=== PATIENT | female | born 1980 | race Caucasian/White ===

== ENCOUNTER → 2018-07-15 12:16 | Outpatient (CLI) | payer OTHER, SELFPAY ==
[2017-04-09 06:29] VITALS: BMI 27.6
[2018-07-15 13:16] LABS: D-Dimer Quantitative (DVT/PE) 0.34 FEU/ug/m (0.27-0.49)
== END ==
PROVIDERS: Referring Provider Family Medicine; Visit Provider Family Medicine
DX: R06.02 Shortness of breath (principal)
CPT/HCPCS: 85379

== ENCOUNTER → 2018-10-11 11:36 | Outpatient (CLI) | payer OTHER, SELFPAY ==
--- NOTE | 2018-10-11 11:39 | US_ITS ---
STUDY: THYROID ULTRASOUND REASON FOR EXAM: Female, 38 years old. Thyromegaly. TECHNIQUE: Ultrasound evaluation of the thyroid was performed with real-time and static cornelius-scale imaging. COMPARISON: None. FINDINGS: RIGHT LOBE: The right lobe of the thyroid gland measures 4.5 x 1.8 x 1.0 cm. There is a homogeneous echotexture. There are no demonstrated solid, cystic or complex lesions. There is increased vascularity throughout the gland. LEFT LOBE: The left lobe of the thyroid gland measures 4.5 x 1.5 x 1.3 cm. There is a homogeneous echotexture. There are no demonstrated solid, cystic or complex lesions. There is increased vascularity throughout the gland. ISTHMUS: The isthmus measures . US/Thyroid IMPRESSION: Enlarged hypervascular gland suggestive of a history of thyroiditis. Electronically Signed: Alissa Darling MD at 16:37 EDT Tel , Service support ,
[2018-10-11 12:47] LABS: Absolute Lymphocyte Count 1.66 X10^3/ul (0.83-4.51); Absolute Neutrophil Count 4.2 X10^3/uL (2.0-7.7); Basophil# 0.06 X10^3/uL; Basophil% 0.9 % (0-1); Eosinophil# 0.27 X10^3/uL; Hematocrit 35.5 % (37-47); Hemoglobin 11.4 g/dl (12.0-15.0); Lymphocyte # 1.66 X10^3/ul (4.0); Lymphocyte % 24.4 % (19-41); Mean Corp Hgb Conc 32.1 g/gl (32-36); Mean Corpuscular Hgb 28.3 pg (27.0-32.0); Mean Corpuscular Volume 88.1 fL (81-99); Mean Platelet Vol. 9.4 fl (6.2-12.0); Monocyte# 0.56 X10^3/uL; Monocyte% 8.2 % (0-10); Neutrophil # 4.23 X10^3/uL (2.7-7.7); Neutrophil % 62.2 % (47-70); Platelet Count 313 K/mm3 (150-450); RBC Distribution Width SD 40.6 fl (35.1-43.9); Red Blood Count 4.03 M/mm3 (4.2-5.4); White Blood Count 6.8 K/mm3 (4.4-11.0)
[2018-10-11 12:49] LABS: POSITIVE COUNT NO; POSITIVE DIFFERENTIAL NO; POSITIVE MORPHOLOGY NO
[2018-10-11 13:35] LABS: ALB/GLOB Ratio 1.1 RATIO (0.9-2.4); AST(SGOT) 19 U/L (15-37); Alanine Aminotransfer ALT/SGPT 22 U/L (13-56); Albumin, Serum 3.7 g/dL (3.2-5.0); Alkaline Phosphatase 81 U/L (45-117); Anion Gap 9 (5-15); BUN 10 mg/dL (7-18); BUN/Creat Ratio 13.4 RATIO (10-20); Calcium,Total 8.3 mg/dL (8.5-10.1); Chloride 108 mmol/L (98-107); Cholesterol 124 mg/dL (200); Creatinine, Serum 0.74 mg/dL (0.55-1.02); EST Glomerular Filtration Rate 93 mL/min (>60); Est Glom Filt Rate - Afr Amer 113 mL/min (>60); Globulin 3.4 g/dL (2.2-4.2); Glucose 80 mg/dL (74-106); High Density Lipoprotein 78 mg/dL; Potassium 3.6 mmol/L (3.5-5.1); Protein, Total 7.1 g/dL (6.4-8.2); Sodium Level 141 mmol/L (136-145); Triglycerides 31 mg/dL; Very Low Density Lipoprotein 6 mg/dL (5-40)
== END ==
PROVIDERS: Family Provider Family Medicine; PCP Family Medicine; Referring Provider Family Medicine; Visit Provider Family Medicine
DX: E01.0 Iodine-deficiency related diffuse (endemic) goiter (principal); K21.9 Gastro-esophageal reflux disease without esophagitis; R07.9 Chest pain, unspecified
CPT/HCPCS: 36415; 76536; 80053; 80061; 85025

== ENCOUNTER → 2018-10-12 11:32 | Outpatient (CLI) | payer OTHER, SELFPAY ==
[2017-04-09 06:29] VITALS: BMI 27.6
[2018-10-12 14:23] LABS: Vitamin B12 373 pg/mL (211-911)
[2018-10-12 14:35] LABS: Ferritin 10 ng/mL (8-252); Iron 45 ug/dL (50-170); Iron Binding Capacity,Total 371 ug/dL (250-450); T4 Free Direct 0.75 ng/dL (0.76-1.46); Thyroid Stim Hormone (TSH) 1.26 uIU/mL (0.358-3.74)
[2018-10-13 16:22] LABS: Anti-Thyroglobulin AB < 1.0 IU/mL (0.0-0.9); Thyroid Peroxidase AB 12 IU/mL (0-34)
[2019-01-18 17:33] LABS: Hematocrit 37.7 % (37-47); Hemoglobin 12.4 g/dl (12.0-15.0); Mean Corp Hgb Conc 32.9 g/gl (32-36); Mean Corpuscular Hgb 28.5 pg (27.0-32.0); Mean Corpuscular Volume 86.7 fL (81-99); Mean Platelet Vol. 9.4 fl (6.2-12.0); Platelet Count 259 K/mm3 (150-450); RBC Distribution Width CV 14.2 % (11.6-14.6); RBC Distribution Width SD 44.8 fl (35.1-43.9); Red Blood Count 4.35 M/mm3 (4.2-5.4); White Blood Count 7.3 K/mm3 (4.4-11.0)
[2019-01-18 17:39] LABS: Scan Indicated on CBC? Y/N NO
[2019-01-18 18:07] LABS: AST(SGOT) 20 U/L (15-37); Alanine Aminotransfer ALT/SGPT 18 U/L (13-56); Albumin, Serum 3.6 g/dL (3.2-5.0); Alkaline Phosphatase 92 U/L (45-117); Anion Gap 3 (5-15); BUN 10 mg/dL (7-18); BUN/Creat Ratio 13.1 RATIO (10-20); Calcium,Total 8.4 mg/dL (8.5-10.1); Chloride 107 mmol/L (98-107); Creatinine, Serum 0.76 mg/dL (0.55-1.02); EST Glomerular Filtration Rate 91 mL/min (>60); Est Glom Filt Rate - Afr Amer 110 mL/min (>60); Ferritin 28 ng/mL (8-252); Globulin 3.5 g/dL (2.2-4.2); Glucose 84 mg/dL (74-106); Iron 57 ug/dL (50-170); Iron Binding Capacity,Total 323 ug/dL (250-450); Potassium 3.9 mmol/L (3.5-5.1); Protein, Total 7.1 g/dL (6.4-8.2); Sodium Level 136 mmol/L (136-145); T4 Free Direct 0.76 ng/dL (0.76-1.46); Thyroid Stim Hormone (TSH) 1.69 uIU/mL (0.358-3.74)
[2019-01-18 19:25] LABS: Vitamin B12 358 pg/mL (211-911); Vitamin D,25 Hydroxy 24.5 ng/mL (29.95-100.01)
== END ==
PROVIDERS: Family Provider Family Medicine; PCP Family Medicine; Referring Provider Family Medicine; Visit Provider Family Medicine
DX: E01.0 Iodine-deficiency related diffuse (endemic) goiter (principal); K21.9 Gastro-esophageal reflux disease without esophagitis; D64.9 Anemia, unspecified; R07.9 Chest pain, unspecified
CPT/HCPCS: 36415; 80053; 82306; 82607; 82728; 82746; 83540; 83550; 84432; 84439; 84443; 85027; 86376; 86800

== ENCOUNTER → 2018-10-24 12:15 | Outpatient (CLI) | payer OTHER, SELFPAY ==
[2018-10-24 13:52] LABS: Erythrocyte Sedimentation Rate 8 mm/hr (0-20)
[2018-10-24 14:09] LABS: T3 Total - Triiodothyronine 0.94 ng/mL (0.6-1.81)
[2018-10-24 14:11] LABS: Free T3 2.9 pg/mL (2.18-3.98); T4 Free Direct 1.03 ng/dL (0.76-1.46); Thyroid Stim Hormone (TSH) 1.37 uIU/mL (0.358-3.74)
== END ==
PROVIDERS: Family Provider Family Medicine; PCP Family Medicine; Referring Provider Otolaryngology; Visit Provider Otolaryngology
DX: E06.1 Subacute thyroiditis (principal)
CPT/HCPCS: 36415; 84439; 84443; 84480; 84481; 85652

== ENCOUNTER → 2018-11-16 17:17 | Outpatient (CLI) | payer OTHER, SELFPAY ==
[2017-04-09 06:29] VITALS: BMI 27.6
[2018-11-16 17:29] LABS: Absolute Lymphocyte Count 1.49 X10^3/ul (0.83-4.51); Absolute Neutrophil Count 5.5 X10^3/uL (2.0-7.7); Basophil# 0.03 X10^3/uL; Basophil% 0.4 % (0-1); Eosinophil# 0.25 X10^3/uL; Eosinophils% 3.2 % (0-5); Hematocrit 36.9 % (37-47); Hemoglobin 12.1 g/dl (12.0-15.0); Lymphocyte # 1.49 X10^3/ul (4.0); Lymphocyte % 19.3 % (19-41); Mean Corp Hgb Conc 32.8 g/gl (32-36); Mean Corpuscular Hgb 28.5 pg (27.0-32.0); Monocyte# 0.49 X10^3/uL; Monocyte% 6.3 % (0-10); Neutrophil # 5.45 X10^3/uL (2.7-7.7); Neutrophil % 70.5 % (47-70); Platelet Count 274 K/mm3 (150-450); RBC Distribution Width CV 14.4 % (11.6-14.6); RBC Distribution Width SD 45.6 fl (35.1-43.9); Red Blood Count 4.24 M/mm3 (4.2-5.4); White Blood Count 7.7 K/mm3 (4.4-11.0)
[2018-11-16 17:30] LABS: POSITIVE COUNT NO; POSITIVE DIFFERENTIAL NO; POSITIVE MORPHOLOGY NO
[2018-11-16 18:10] LABS: Ferritin 18 ng/mL (8-252); Iron 81 ug/dL (50-170); Iron Binding Capacity,Total 391 ug/dL (250-450)
== END ==
PROVIDERS: Family Provider Family Medicine; PCP Family Medicine; Referring Provider Family Medicine; Visit Provider Family Medicine
DX: D50.9 Iron deficiency anemia, unspecified (principal)
CPT/HCPCS: 36415; 82728; 83540; 83550; 85025

== ENCOUNTER → 2019-01-19 11:41 | Outpatient (CLI) | payer OTHER, SELFPAY ==
[2017-04-09 06:29] VITALS: BMI 27.6
== END ==
PROVIDERS: Family Provider Family Medicine; PCP Family Medicine; Referring Provider Family Medicine; Visit Provider Family Medicine
DX: R05 Cough (principal)
CPT/HCPCS: 87070

== ENCOUNTER → 2019-03-15 16:54 | Outpatient (CLI) | payer OTHER, SELFPAY ==
[2017-04-09 06:29] VITALS: BMI 27.6
[2019-03-15 18:18] LABS: Vitamin D,25 Hydroxy 23.2 ng/mL (29.95-100.01)
[2019-03-15 18:25] LABS: T4 Free Direct 0.75 ng/dL (0.76-1.46); Thyroid Stim Hormone (TSH) 1.98 uIU/mL (0.358-3.74)
[2019-03-24 13:07] LABS: Thyroglobulin RIA 10 ng/mL (.); Thyroid Peroxidase AB 14 IU/mL (0-34)
== END ==
PROVIDERS: Family Provider Family Medicine; PCP Family Medicine; Referring Provider Family Medicine; Visit Provider Family Medicine
DX: E01.0 Iodine-deficiency related diffuse (endemic) goiter (principal); E55.9 Vitamin D deficiency, unspecified
CPT/HCPCS: 36415; 82306; 84432; 84439; 84443; 86376; 86800

== ENCOUNTER → 2019-04-07 08:19 | Outpatient (CLI) | payer OTHER, SELFPAY ==
--- NOTE | 2019-04-07 08:25 | US_ITS ---
STUDY: THYROID ULTRASOUND REASON FOR EXAM: Female, 38 years old. Thyromegaly. TECHNIQUE: Ultrasound evaluation of the thyroid was performed with real-time and static cornelius-scale imaging. COMPARISON: Comparison is made with prior study dated October 11, 2018. FINDINGS: RIGHT LOBE: The right lobe of the thyroid gland measures 4.5 cm x 1.7 cm x 1.3 cm. There is a homogeneous echotexture. There are no demonstrated solid, cystic or complex lesions. LEFT LOBE: The left lobe of the thyroid gland measures 4.3 cm x 1.7 cm x 0.9 cm. There is a homogeneous echotexture. There are no demonstrated solid, cystic or complex lesions. ISTHMUS: The isthmus measures 2.0 mm. The regional lymph nodes are normal. US/Thyroid IMPRESSION: Normal ultrasound examination of the thyroid. Electronically Signed: Sergio Robb, at 15:25 EDT , Service support ,
== END ==
PROVIDERS: Family Provider Family Medicine; PCP Family Medicine; Referring Provider Family Medicine; Visit Provider Family Medicine
DX: E01.0 Iodine-deficiency related diffuse (endemic) goiter (principal)
CPT/HCPCS: 76536

== ENCOUNTER 2019-05-26 01:21 | Emergency (ER) | payer OTHER, SELFPAY ==
[2019-05-26 01:22] VITALS: BP 151/109; PULSE 88; RESP 16; TEMP 37.1; O2SAT 100; BMI 33.4
[2019-05-26] MEDS: Tetracaine 0.5% Ophthalmic Bottle 3 DRP LEFT EYE (02:56)
[2019-05-26] MEDS: Fluorescein 1 MG STRIP 1 STRIP LEFT EYE (02:56)
--- NOTE | 2019-05-26 03:31 | ED.DCSUM_ITS ---
History of Present Illness Chief Complaint: Eye Problem Informant: Patient Location: Left Eye Onset: Today - JPTA Context: Sudden Onset - scratched in L eye by her dog on accident Timing: Continuous Current Severity: Severe Maximum Severity: Severe Worsened by: trying to open eye Relieved by: nothing History of injury: Yes, Direct trauma Visual correction: None Narrative: Was lying on the couch, her dog came up to greet her, raised her paw and accidentally scratched her in the eye unexpectedly. Does not wear glasses or contacts. Can't tell if her vision is off or not since she cannot open it due to pain. - Past Medical History (1) Depression Status: Chronic Past Medical History - Allergies and Home Meds Allergies/Adverse Reactions: Allergies nalbuphine [From Nubain] Allergy (Verified 05/26/19 01:24) Other COUGHING AND DIFFICULTY BREATHING Primary Care Physician: Luis Alejandro MD [STAFF PHYSICIAN] - (4-6 days if not improving) Lives: Spouse/ Significant Other Smoking Status: Never smoker Review of Systems Eyes: Reports: - - left eye pain. Denies: Diplopia ENT: Denies: Bilateral ear pain, Rhinorrhea, Sore throat Physical Exam Visual Acuity: right: 20/40, left: 20/70, bilateral: 20/50 Visual Acuity: Uncorrected Eyelid: Normal inspection, No foreign body Right Conjunctiva/Sclera: Normal inspection Left Conjunctiva/Sclera: Diffuse focal injection - diffuse Left Cornea: No foreign body, Tetracaine instilled, Corneal abrasion - peripheral 10 O'clock position, superficial/broad-based, - - no laceration. Neg Kalli's sign. No FB. Extraocular Motion: Normal exam, No pain, No palsy, No nystagmus Anterior chamber: Normal exam, Deep and quiet - no hyphema/hypopyon Vital Signs/Narrative: Vital Signs Temp Pulse Resp BP Pulse Ox 05/26/19 01:22 98.8 F 88 16 151/109 H 100 Inital Vital Signs reviewed: Yes General: Well nourished, Well developed Head: Normocephalic, Atraumatic Neck: Supple, Nontender Skin: Normal color, No rash, No Trauma Neurological: Alert, Oriented x3, Cranial nerves II-XII grossly intact, Normal Strength, Normal Sensation Psychological: Normal affect, Normal Mood Diagnostic/Tx/Re-eval - Treatment and Re-Evaluation Tetracaine: left eye Antibiotic: left eye - Medical Decision Making Patient is asymptomatic after tetracaine. Stained with fluorescein. Broad- based abrasion noted. Should heal without complication in several days. Follow-up with ophthalmology if it does not improve quickly, or she has residual visual disturbance/problem. She is comfortable with this plan given a prescription for Vicodin to use as needed in addition to the antibiotic we gave her here. ED Disposition - Plan for ED Patient: Disposition: Home or Assisted Living Diagnosis: Left corneal abrasion Instructions: ED Corneal Abrasion Prescriptions: Hydrocodone Bitart/Apap 5-325 [[place] 5MG-325MG] 1 tab PO Q4H PRN PRN 2 Days #10 tab PRN Reason: Pain Prescription Printed Referrals: Luis Alejandro MD [STAFF PHYSICIAN] - (4-6 days if not improving) Additional Instructions: Apply antibiotic ointment 3 times daily to affected eye, may apply more often if needed, if it soothes the eye and feels better.
[2019-05-26] MEDS: Naproxen 500 MG Tablet PO (03:50)
[2019-05-26 04:04] VITALS: RESP 16
== END 2019-05-26 04:04 | disposition home or self-care (01) ==
PROVIDERS: Emergency Provider Emergency Medicine; Family Provider Family Medicine; PCP Family Medicine
DX: S05.02XA Injury of conjunctiva and corneal abrasion without foreign body, left eye, initial encounter (principal); W54.1XXA Struck by dog, initial encounter; Y93.89 Activity, other specified
CPT/HCPCS: 99283

== ENCOUNTER → 2020-03-29 15:55 | Outpatient (CLI) | payer OTHER, SELFPAY ==
--- NOTE | 2020-03-29 16:10 | CT_ITS ---
STUDY: CT RIGHT FOOT REASON FOR EXAM: Female, 39 years old. Right ankle and foot pain, rolled ankle x 3 since 05/2019. No prior surgery. RADIATION DOSAGE (If Supplied By Facility): CTDIvol = ( 15.35 ) mGy, DLP = ( 292.36 ) mGycm TECHNIQUE: Thin section transaxial imaging of the foot was obtained, with sagittal and coronal reconstructed images. Individualized dose optimization techniques were used for this CT. COMPARISON: None. FINDINGS: Normal talus, calcaneus, and tarsal bones. There is a bone island of the talus and calcaneus. Normal visualized tibiotalar, subtalar, talonavicular, calcaneocuboid, tarsal and tarsometatarsal articulations. Bipartite medial sesamoid. Normal metatarsi. Normal metatarsophalangeal joint of the great toe. Normal tibial and fibular sesamoid bones. Normal interphalangeal joint of the great toe. Normal phalanges of the great toe. Normal second through fifth metatarsophalangeal joints. Normal interphalangeal joints and phalanges of the lesser toes. The soft tissue structures are unremarkable. CT/Extremity Lower without Contra IMPRESSION: Normal CT examination of the foot. Electronically Signed: Sebastián Larios MD (Brooks) at 15:33 EDT , Service support ,
--- NOTE | 2020-03-29 16:10 | CT_ITS ---
STUDY: CT RIGHT ANKLE WITHOUT CONTRAST REASON FOR EXAM: Female, 39 years old. Right ankle and foot pain, rolled ankle x 3 since 05/2019. No prior surgery. RADIATION DOSAGE (If Supplied By Facility): CTDIvol = ( 15.35 ) mGy, DLP = ( 223.28 ) mGycm TECHNIQUE: Thin section transaxial imaging of the ankle was obtained, with sagittal and coronal reconstructed images. Individualized dose optimization techniques were used for this CT. COMPARISON: None. FINDINGS: Normal visualized distal tibia and fibula. Normal tibiotalar articulation and talar dome. Normal talus, calcaneus, navicular and cuboid tarsal bones. There is a benign bone island of the talus. Normal subtalar, talonavicular and calcaneocuboid articulations. Normal navicular-cuneiform, cuneiform tarsal bones and intercuneiform articulations. Normal tarsometatarsal articulations and visualized metatarsi. The soft tissue structures are grossly normal. CT/Extremity Lower without Contra IMPRESSION: Normal CT examination of the ankle. Electronically Signed: Sebastián Larios MD ([place]) at 15:32 EDT , Service support ,
== END ==
PROVIDERS: PCP Family Medicine; Referring Provider Family Medicine; Visit Provider Podiatrist Foot & Ankle Surgery
DX: M76.71 Peroneal tendinitis, right leg (principal); M76.821 Posterior tibial tendinitis, right leg; S93.491A Sprain of other ligament of right ankle, initial encounter; S93.691A Other sprain of right foot, initial encounter; X50.1XXA Overexertion from prolonged static or awkward postures, initial encounter
CPT/HCPCS: 73700

== ENCOUNTER 2020-11-18 16:00 | Outpatient (RCR) | payer OTHER, SELFPAY ==
--- NOTE | 2020-10-31 16:28 | HP.PTREVAL ---
Dr. Kamala Moulton MD, It has been my pleasure to treat RADHA FERGUSON over the last 9 visits for R ankle surgery. Please see the progress note below for an update on the physical therapy plan of care! 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 Patient reports the ankle feels good- if she walks a lot or up doing housework it swells- hard to keep herself from doing to much. Once she ices and elevates the swelling goes down. Worst: 4/10 Best: 0/10 most of the time. She wants to be able be outside walk more and be more active. Still uses crutches at the store and but is weight bearing through both. Objective/Function: Posture: FH, RS- can correct but does not maintain. Palpation: not tender to touch. Observation: incision healing well. Gait: slightly decreased stance on right LE with shortened stride- no AD. HR/TR: mild weight shift to the left with HR. SLS: 30 sec without LOB. sensation: light touch in tact. ROM: hip/knee: WFL DF: 15 PF: 50 Inversion: 40 Ever: 20. Girth: Mets: 21 cm, Figure 8: 50 cm, Malls: 26cm. Strength: hip: flex: 4+/5, abd/add: 4/5 knee: flex: 4+/5 ext: 4+/5 ankle: DF: 4+/5, PF:4+/5, inver/ever:4+/5. flexibilty: gastroc: moderate, Soleus: moderate Plan Plan: 10/31/2020: Focus on gym program for Core and LE strength/stabilization- no restrictions- (wants to get back to working out but nervous). increase LE strength, ankle staiblty, improve ROM, improve balance and weight bearing. Saw 10-08-20.- no more restrictions, except jumping. IE HEP: ankle pumps, gastroc towel stretch, weight shift Goals Goal 1:: Pt will be I with HEP and progression Goal Time Frame: 4-6 Weeks Goal Progress: Progressing Goal 2:: Pt will demonstrate SLS on R for 10 seconds to promote ankle stabilty Goal Progress: Goal Met Goal 3:: Pt will demonstrate improve ankle ROM DF/PF to WFL in order to promote proper gait mecahnics and I functional mobiltiy Goal Time Frame: 4-6 Weeks Goal Progress: Goal Met Goal 4:: Patient will ambulate >300 feet no deviation noted Goal Time Frame: 4-6 Weeks Goal 5:: Patient brenton return to all normal ADL's and recreational activities with pain or fear Goal Time Frame: 4-6 Weeks Anticipated Interventions Patient/Client Instruction: Educate patient on: Plan of Care For the Purpose of:: To improve muscle performance and motor function Therapeutic Exercise to Include: Strength training, Power training, Endurance training, Balance training, Coordination, Agility training, Body mechanics, Postural training, Flexibilty training, Gait and locomotor training, Passive ROM, Active ROM For the Purpose of:: To improve muscle performance and motor function, To increase tolerance to activity/condition/position Cryotherapy (ice pack, ice massage): Yes Thermo therapy (hot pack): Yes Ultrasound (thermal/non thermal): No Please do not hesitate to contact me at [phone] by phone or if you have questions or concerns regarding this new plan of care! Sincerely, Kamala Mccoy DPT
== END 2020-11-18 19:00 | disposition home or self-care (01) ==
LOC: PT 16:00
PROVIDERS: PCP Family Medicine; Referring Provider Orthopaedic Surgery; Visit Provider Orthopaedic Surgery
DX: M25.371 Other instability, right ankle (principal); S93.04XD Dislocation of right ankle joint, subsequent encounter; S86.311D Strain of muscle(s) and tendon(s) of peroneal muscle group at lower leg level, right leg, subsequent encounter
CPT/HCPCS: 97016; 97110; 97162; 97164; 97530

== ENCOUNTER → 2021-02-04 11:34 | Outpatient (CLI) | payer OTHER, SELFPAY ==
--- NOTE | 2021-02-04 11:37 | RAD_ITS ---
PROCEDURE: CERVICAL MYELOGRAM DATE OF EXAMINATION: 02/04/2021 INDICATION: Female, 40 years old. Left shoulder pain and left clavicular pain. PHYSICIAN: Sergio Robb M.D. CONSENT: The patient''s history and physical findings were reviewed. The lumbar myelogram procedure was discussed with the patient prior to signing a consent. SEDATION: Local anesthesia with 3 mL of 1% lidocaine was used. FLUOROSCOPY TIME (if supplied): (1:58) minutes/seconds Injection Information: 15 cc of ISOVUE-M 300 Number of images obtained: 6 TECHNIQUE: Digital fluoroscopy was used to identify a safe approach for the lumbar myelogram. The back was prepped and draped in usual fashion. Local anesthesia was utilized. Under fluoroscopic guidance a 22-gauge spinal needle was inserted into the spinal canal at the L2-L3 level. Clear spinal fluid was seen . 15 mL of Isovue 300 M was injected into the spinal canal. The patient was then placed in the reverse TREN[place]BURG position. There is good opacification of the spinal fluid. The nerve root sheaths are asymmetrically identified. There is no extradural defects. RAD/Cervical Myelogram IMPRESSION: Normal cervical myelogram. CT scan will follow. The patient tolerated the procedure well. Electronically Signed: Sergio Robb MD at 13:33 EDT , Service support ,
--- NOTE | 2021-02-04 11:39 | CT_ITS ---
STUDY: CT CERVICAL SPINE WITH INTRATHECAL CONTRAST (CERVICAL CT MYELOGRAM) REASON FOR EXAM: Female, 40 years old. RADICULOPATHY CERVICAL REGION RADIATION DOSAGE (If Supplied By Facility): CTDIvol = ( 27.23 ) mGy, DLP = ( 586.44 ) mGycm TECHNIQUE: Transaxial images were obtained following intrathecal administration of 15 ml of ISOVUE-M 300 contrast material, performed by Dr. Robb. Please refer to this physicians technical notes for procedural details. Coronal and sagittal reconstructions were obtained. Individualized dose optimization techniques were used for this CT. COMPARISON: Comparison is made with prior myelogram done earlier today. FINDINGS: Normal craniovertebral junction. Normal anterior atlantoaxial articulation. Normal odontoid process. Normal cervical lordosis. Normal vertebral bodies and posterior osseous elements. C2-3: Normal endplates. Normal disc height and morphology. Normal central canal and bilateral intervertebral neural foramen. C3-4: There is mild degree of diffuse posterior disc bulge causing deformity of the thecal sac and a mild degree of bilateral neural foraminal stenosis. C4-5: Minimal central disc bulge. Minimal deformity of the thecal sac. C5-6: Central posterior spondylosis causing deformity of the midline of the thecal sac. C6-7: Mild degree of disc space narrowing. Moderate degree of posterior disc bulge causing deformity of thecal sac as well as bilateral neural foraminal stenosis worse on the right side. C7-T1: Normal endplates. Normal disc height and morphology. Normal bilateral uncovertebral and apophyseal joints. Normal central canal and bilateral intervertebral neural foramen. Normal cervical cord size and morphology. No demonstrated soft tissue abnormality. CT/Spine Cervical WITH Contrast IMPRESSION: Multiple findings as discussed above. Electronically Signed: Sergio Robb MD at 13:38 EDT , Service support ,
[2021-02-04 11:45] VITALS: BP 137/93; PULSE 67; RESP 16; TEMP 37.1; O2SAT 100; BMI 34.4
[2021-02-04 12:45] VITALS: BP 129/74; PULSE 63; RESP 18; O2SAT 100
[2021-02-04 13:35] VITALS: BP 129/74; PULSE 57; RESP 16; O2SAT 100
--- NOTE | 2021-02-05 14:05 | NURSING ---
Pt states she went home and slept after procedure. Reports feeling ok when she woke up. On pt's drive to work started feeling headache, drank caffeine. Pt states she laid on the floor at work and had 1 episode of vomiting. Pt's mother drove her home from work. Pt rates pain 10/10. JERRY Sanders instructed pt to call Dr. Sanford's office and inform them she had a myelogram yesterday, has a spinal headache today and is in need of a blood patch. Pt states she will do call the office.
== END | disposition home or self-care (01) ==
PROVIDERS: PCP Family Medicine
DX: M54.12 Radiculopathy, cervical region (principal)
CPT/HCPCS: 62302; 72125; 72126; Q9965

== ENCOUNTER 2021-02-05 15:01 | Day surgery (SDC) | payer OTHER, SELFPAY ==
[2021-02-04 11:45] VITALS: BMI 34.4
[2021-02-05 15:02] VITALS: BP 144/99; PULSE 100; RESP 16; TEMP 35.7; O2SAT 97; BMI 34.9
--- NOTE | 2021-02-05 15:34 | EDS_ITS ---
HPI History of Present Illness Chief Complaint: Headache Informant: patient Onset/Context/Timing Onset: Hours (27) Context: Sudden (During cervical myelogram yesterday and has been persistent) Timing: Continuous Quality -Headache: Positive for Other (Aching) Location: Entire head Current Severity: Mild Maximum Severity: Severe Worsened by: Standing or sitting Relieved by: Lying down Associated Symptoms/Injury Associated Symptoms: Positive for Nausea and Vomiting (When headache severe) Narrative Narrative: Patient has a spinal stimulator and is unable to have MRI, so yesterday because of pain in her neck going into her shoulder, she had a scheduled cervical myelogram here by interventional radiology. She states when they did the lumbar puncture to inject the contrast, before the even put her in Trendelenburg, with injection of contrast she had the headache started along with some transient tingling in her left arm. She has had no more neurologic symptoms, but she has had persistent headache whenever she is upright and it is almost completely resolved when she is lying supine as she is now. No focal neurologic symptoms. No fevers. No vision trouble or fevers or mental status changes. [facility] Medical History Depression Home Medications escitalopram oxalate 25 mg PO DAILY 02/04/21 [History Last Taken Unknown] Allergy/AdvReac Type Severity Reaction Status Date / Time nalbuphine [From Nubain] Allergy Other Verified 02/05/21 15:01 Social History Smoking Status: Never smoker ROS ROS ED Constitutional Constitutional ED: Denies chills or fever(s) Eyes Eyes: Denies blurry vision, change in vision or diplopia ENT ENT ED: Denies rhinorrhea or sore throat Cardiovascular Cardiovascular: Denies chest pain or palpitations Respiratory/Chest Respiratory/Chest: Denies cough or dyspnea Gastrointestinal Gastrointestinal: Denies abdominal pain, diarrhea, nausea or vomiting Genitourinary Genitourinary ED: Denies dysuria or hematuria Musculoskeletal Musculoskeletal: Denies back pain or neck pain Integumentary Denies abscess or rash Neurologic Neurologic: Reports as per HPI and headache(s); Denies confusion, paresthesias or weakness Psychiatric Psychiatric: Denies anxiety or suicidal thoughts EXAM Physical Exam Const Vital Signs: 02/05/21 15:02 Temperature 96.3 F L Temperature Source Temporal Pulse Rate 100 Respiratory Rate 16 Blood Pressure 144/99 H Blood Pressure Mean 114 Pulse Ox 97 Oxygen Delivery Method Room Air Positive well nourished and well developed General Appearance ED: well developed and NAD HEENT Reports moist mucous membranes normocephalic and atraumatic Eyes PERRL and EOMs intact bilaterally Neck full ROM and supple Resp normal respiratory effort and clear to auscultation bilaterally Cardio regular rate, regular rhythm and no murmurs Back/Spine no CVA tenderness General Back: other FROM Extremity normal to inspection General Extremety ED: Negative for edema, pulses abnormal or tenderness General Extremity: Negative for edema or pulses abnormal Neuro oriented x3, CN's II-XII intact bilaterally and no sensory deficits noted Sensorium / Orientation: awake and alert Motor Exam: strength 5/5 throughout Skin no rashes or lesions noted and no wounds MDM MDM MDM Narrative Medical decision making narrative: Discussed with interventional radiology who defers to anesthesia if the patient needs a blood patch. The patient states that she was discussing with one of the nurses here and came to the ER expecting to have a blood patch done. I discussed with anesthesia, they advocated for conservative treatment 1st, so I gave the patient an IV along with 500 mg of caffeine/sodium benzoate. About half of it was done, the patient was feeling no better and feeling very jittery and preferred that we stop it which was done. Discussed with anesthesia, they asked that the patient be transferred down to the PACU and they will proceed with blood patching. Discharge Plan Triage Chief Complaint: Headache ED Provider: Giovanni Lee Dx/Rx/DC Orders Clinical Impression: Spinal puncture headache Prescriptions: No Action escitalopram oxalate 5 mg Tablet 25 mg PO DAILY RF: 0 Primary Care Provider: Jono Ashley Referrals: Jono Ashley MD [Primary Care Provider] -
[2021-02-05] MEDS: 0.9% Normal Saline 1,000 ML 999 ML IV (16:09)
--- NOTE | 2021-02-05 16:49 | ED.RN ---
rn into room to check on patient. patient states she isn't feeling any better. dr medina notified at this time.
== END 2021-02-05 19:40 | disposition home or self-care (01) ==
LOC: ED 15:39 → SDC 17:08 → AC 17:14
PROVIDERS: Emergency Provider Emergency Medicine; PCP Family Medicine; Visit Provider Anesthesiology
PROC: 3E0R3GC Introduction of Other Therapeutic Substance into Spinal Canal, Percutaneous Approach (ICD-10-PCS; CPT 62273; principal; 2021-02-05 18:00)
DX: G97.1 Other reaction to spinal and lumbar puncture (principal); R51.0 Headache with orthostatic component, not elsewhere classified
CPT/HCPCS: 62273; 99285; J7030; J7040; A4216

== ENCOUNTER 2021-06-20 10:00 | Outpatient (RCR) | payer OTHER, SELFPAY ==
--- NOTE | 2021-03-18 10:05 | HP.PTEVAL_ITS ---
Patient's Visit Information RADHA FERGUSON is a 40 year old F referred to Physical Therapy by ANGELA Cam with a diagnosis of SPINAL STENOSIS CERVICAL REGION. Date of Evaluation: 03/17/21 Physical Therapist: Kasi Figueroa, PT, Cert MDT, OCS - Visit Plan Frequency: 2x /Week Duration: 4 Weeks Plan: PT INTERVETIONS MODALTIES FOR PAIN , POSTURAL EX'S AND UE STRENGTHENING - Subjective This 40 y/o female presents to physical therapy with cervical stenosis. Patient fell 2019 on right ankle s/p surgery reconstruction Jul 2020 . Patient noticed shoulder pain left ,and fell past January 27. Patient had pain stimulator in spine since 2011. ,than had battery replaced . Left shoulder pain persisted ,seen orthopedic shoulder DR x-rays - for shoulder then seen DR Robb reviewed 3 HNP and C3 pressing on spinal cord and has DDD. Patient recommended surgery C3 disc replacement actually was to be done today. Patient has noticed falling, weakness in hands. Actually has some difficulty with swallowing. At this point, insurance to require PT. Patient did have cortisone injection. Patient plan neurologist this . After CT myelogram developed SIMENTAL. No MEDS. Denies paresthesia/tinging . Denies tinnitus/dizziness/nausea. Pain affects sleeping. Aggravating factors lifting with arm ,dangling arm ,slouching ex washing dishes . Alleviating rest. Patient has h/o 2 lumbar surgeries 2007 HNP disectomy,2011 discectomy and spinal implants. Patient pain affects QOL ,function and job demands. Difficulty lifting with arms. SOCIAL: single. VOCATION: [employer] - Pain Left Shoulder Pain Intensity (Out of 10): 3 Pain Intensity Range: 10 - Objective POSTURE: rounded shoulders head forward. PALAPTION: tender UT/levator/paraspinals. NEURO: denies paresthesia/tingling reflexes 3/3 C5-6-7 RIGHT LEFT 2/3,MYTOME WEAKNESS C5-6-7. AROM SHOULDER : 130 DEGREES with flexion/abduction with full PROM. CERVICAL ROM: flexion min loss, extension min loss, lateral flexion/rotation min loss, retraction min loss. MMT: 4-/5 grossly biceps, triceps ,wrist flexors left 3+/5,deltoids 3+/5,infraspinatous 3+/5. DATA SCIENTIST STRENGTH : 40# dynamotor - Special Tests C/S Radiculapathy - Left Upper limb tension test: Positive C/S Radiculapathy - Right Upper limb tension test: Negative C/S Radiculapathy - Left Spurlings: Positive C/S Radiculapathy - Right Spurlings: Negative C/S Radiculapathy - Left Cervical distraction: Positive C/S Radiculapathy - Right Cervical distraction: Positive Sharp Melodie: Negative Vertebral Artery Test: Negative - Balance/Special Test Scores Oswestry Neck Score: 27 - Goals Goal 1:: I with HEP Goal Time Frame: 2-4 Weeks Goal 2:: Improve posture for ADLS' Goal Time Frame: 2-4 Weeks Goal 3:: Decrease pain in shoulder by 30% to improve function Goal Time Frame: 2-4 Weeks Goal 4:: Patient increase strength of BUE by 1/2 grade to improve function. 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 MD recommended cervical disc surgery Rehabilitation Potential: Good - Anticipated Interventions Patient/Client Instruction: Educate patient on: Condition, Plan of Care For the Purpose of:: To decrease pain, To improve muscle performance and motor function, To improve ability to perform ADL's, To increase tolerance to activity/condition/position, To improve performance and independence with ADL's, To improve ability of physical actions for home/community/work/leisure, To improve health of tissue, To decrease soft tissue restriction, To increase flexibility/ROM, To assume or resume ADL's Therapeutic Exercise to Include: Strength training, Postural training, Flexibilty training Comment: BUE STRENGTHNEING For the Purpose of:: To decrease pain, To improve ability to perform ADL's, To increase tolerance to activity/condition/position, To improve performance and independence with ADL's, To improve ability of physical actions for home/community/work/leisure, To increase flexibility/ROM, To reduce risk of recurrence TENS: Yes IF ES: Yes Cryotherapy (ice pack, ice massage): Yes Thermo therapy (hot pack): Yes Ultrasound (thermal/non thermal): Yes For the Purpose of:: To decrease pain, To decrease swelling/inflammation, To improve nutrient delivery to tissue, To increase oxygenation perfusion, To improve health of tissue, To decrease soft tissue restriction Thank you for the opportunity to evaluate your patient. For Medicare and Medicare HMO plans, please review the plan of care and approve it. It will need to be FAXED BACK to us at [phone] for Medicare purposes. For Medicare only, by signing this I certify the plan of care. Please let me know if there are questions or concerns regarding this plan of care. Physician Signature: Date:
--- NOTE | 2021-06-20 10:38 | HP.PTDCSUM ---
It has been my pleasure to treat RADHA FERGUSON referred by Gretchen Stanley, BESSY-C, with the diagnosis of SPINAL STENOSIS CERVICAL REGION for a total of 8 visit(s). Discharge Date: Please see the following information for a summary of their discharge status. Subjective: Pain has been intermittent ,not as bad in neck arm seems to be more affected. Plan to follow up with DR Robb office Left Shoulder Pain Intensity (Out of 10): 7 % Improvement: 0 Objective/Function: POSTURE: mild forward head. PALPATION: UT/levator. NEURO: c/o paresthesia left arm, reflexes C5-6-7 1/3, myotome weakness C5-6. CERVICAL ROM : min loss with flexion extension with pain, rotation /lateral flexion min/mod loss. MMT: right shoulder deltoid 3+/5, supraspinatus 4-/5 pain, biceps /wrist extensors 4-/5. 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 Goal Progress: Progressing Plan: RTD TO REVIEW MRI AND OPTIONS If there are questions or concerns regarding this patient's physical therapy, please feel free to call me at [phone]. Thank you for the referral of this patient. Sincerely, Kasi Figueroa, PT, Cert MDT, OCS Balance/Gait/Functional tests - Balance/Special Test Scores Oswestry Neck Score: 24
== END 2021-06-20 19:00 | disposition home or self-care (01) ==
LOC: PT 10:00
PROVIDERS: PCP Family Medicine; Referring Provider Nurse Practitioner Acute Care; Visit Provider Nurse Practitioner Acute Care
DX: M48.02 Spinal stenosis, cervical region (principal)
CPT/HCPCS: 97014; 97035; 97110; 97162; 97530; G0283

== ENCOUNTER → 2021-07-09 | Outpatient (CLI) | payer OTHER, SELFPAY | END | disposition home or self-care (01) | LOC: LABSPEC 07-10 08:25 | PROVIDERS: PCP Family Medicine; Referring Provider Family Medicine; Visit Provider Family Medicine | DX: J98.9 Respiratory disorder, unspecified (principal) | CPT/HCPCS: 87635; U0005; U0003 ==

== ENCOUNTER → 2021-07-11 10:32 | Outpatient (CLI) | payer OTHER, SELFPAY ==
[2021-07-11] MEDS: Iopamidol 10 ML in Syringe 1 EACH 600 ML INTRAARTIC (10:30)
[2021-07-11] MEDS: Lidocaine 2% (5ml sdv) 5 ML VIAL.MPF INFILT (10:30)
--- NOTE | 2021-07-11 10:50 | RAD_ITS ---
CLINICAL HISTORY: Female, 41 years old. Chronic left shoulder pain. PROCEDURE: ARTHROGRAM - LEFT SHOULDER CONSENT: The procedure as well as the benefits and possible complications including infection and bleeding were explained to the patient. Informed consent was obtained. FLUOROSCOPY TIME (if supplied): (49 seconds) minutes/seconds Injection Information: 10 cc of dilute Dotarem Number of images obtained: 3 TECHNIQUE: (All elements of maximal sterile barrier technique followed, including US elements as applicable) The patient was in the supine position. The overlying skin was prepped and draped in the usual sterile fashion. Following local anesthetic application and under direct fluoroscopic guidance, a 22-gauge spinal needle was placed into the shoulder joint. 2 cc of ISOVUE 300 was injected for confirmation. Following this, 10 cc of dilute MRI contrast was injected. The patient tolerated the procedure well. RAD/Arthrogram Shoulder w/ MRI IMPRESSION: Successful left shoulder arthrogram for MRI examination. Electronically Signed: Sergio Robb MD at 12:38 EST , Service support ,
--- NOTE | 2021-07-11 11:16 | MRI_ITS ---
STUDY: MR LEFT SHOULDER ARTHROGRAPHY REASON FOR EXAM: Left shoulder pain since 2019, history of left shoulder injury. TECHNIQUE: Standardized fat and water weighted pulse sequences were obtained in all 3 orthogonal planes after intra-articular instillation of dilute Dotarem. COMPARISON: Images from arthrogram preceding the MRI. FINDINGS: Normal supraspinatus tendon. Normal infraspinatus tendon. Normal subscapularis tendon. Normal teres minor tendon. Normal supraspinatus muscle. Normal infraspinatus muscle. Normal subscapularis muscle. Normal teres minor muscle. Normal glenohumeral articulation. Normal humeral head and visualized proximal humerus. Normal biceps labral complex. Normal intracapsular long biceps tendon. Normal labrum. Normal capsulo- ligamentous complex. Normal rotator interval. There is mild acromioclavicular arthrosis without undersurface osteophytes (T2 coronal image 14). There is a Type II morphology (curved), with a neutral orientation. There is no subacromial-subdeltoid bursal fluid. Normal visualized coracohumeral and coracoacromial ligaments. Normal deltoid muscle. Normal trapezius muscle. MRI/Upper Ext Jt Only W/Contrast IMPRESSION: Mild acromioclavicular arthrosis. Otherwise, unremarkable MR left shoulder arthrography without demonstrated rotator cuff tear or labral tear. Electronically Signed: David Dobson MD at 13:11 EST Tel , Service support ,
== END ==
PROVIDERS: PCP Family Medicine
DX: M75.102 Unspecified rotator cuff tear or rupture of left shoulder, not specified as traumatic (principal); M19.012 Primary osteoarthritis, left shoulder; G89.29 Other chronic pain
CPT/HCPCS: 23350; 73222; 77002; A9575; Q9967

== ENCOUNTER 2021-08-02 14:24 | Outpatient (CLI) | payer OTHER, SELFPAY ==
[2021-08-02 14:40] VITALS: BP 136/97; PULSE 105; RESP 16; TEMP 36.7; O2SAT 98; BMI 35.5
[2021-08-02] MEDS: 0.9% Saline Lock 10 ML Syringe IV (14:45)
[2021-08-02 15:28] VITALS: BP 144/96; PULSE 84; RESP 16; TEMP 37.1; O2SAT 98
[2021-08-02 16:26] VITALS: BP 132/98; PULSE 84; RESP 16; TEMP 37; O2SAT 99
== END 2021-08-02 23:59 | disposition home or self-care (01) ==
LOC: MS3OUT 14:25 → MS3 14:25
PROVIDERS: PCP Family Medicine; Visit Provider Nurse Practitioner Acute Care
DX: U07.1 COVID-19 (principal)
CPT/HCPCS: J7050; M0243; A4216; Q0244

== ENCOUNTER 2021-10-07 09:20 | Outpatient (CLI) | payer OTHER, SELFPAY ==
--- NOTE | 2021-10-07 09:30 | RAD_ITS ---
INDICATION: SHORTNESS OF BREATH EXAMINATION/TECHNIQUE: X-RAY - XR Chest 2 Views COMPARISON: None. FINDINGS: Support devices: None. No focal consolidations, effusions, or sizable pneumothorax. Cardiomediastinal silhouette is within normal limits. There is a nerve stimulator device arising from the lumbar region with the 2 leads terminating in the mid thoracic spine. There are no acute findings in the bones or soft tissues. RAD/Chest PA and Lateral IMPRESSION: No radiographic evidence of acute cardiopulmonary disease. Electronically Signed: Godry Littlejohn, at 12:09 EDT ,
== END 2021-10-07 23:59 | disposition home or self-care (01) ==
LOC: MTRAD 09:22
PROVIDERS: PCP Family Medicine; Referring Provider Family Medicine; Visit Provider Family Medicine
DX: R06.02 Shortness of breath (principal)
CPT/HCPCS: 71046

== ENCOUNTER 2021-10-21 16:20 | Outpatient (CLI) | payer OTHER, SELFPAY ==
[2021-10-21 17:48] LABS: Absolute Neutrophil Count 6.6 X10^3/uL (2.0-7.7); Basophil# 0.07 X10^3/uL; Basophil% 0.7 % (0-1); Eosinophil# 0.36 X10^3/uL; Eosinophils% 3.8 % (0-5); Hemoglobin 12.8 g/dL (12.0-15.0); Lymphocyte % 18.9 % (19-41); Mean Corp Hgb Conc 32.8 g/dL (32-36); Mean Corpuscular Hgb 28.8 pg (27.0-32.0); Mean Corpuscular Volume 87.6 fL (81-99); Mean Platelet Vol. 9.7 fl (6.2-12.0); Monocyte# 0.59 X10^3/uL; Monocyte% 6.2 % (0-10); NRBC Flagged by Analyzer 0 % (0-5); Neutrophil # 6.63 X10^3/uL (2.7-7.7); Neutrophil % 69.8 % (47-70); Platelet Count 408 K/mm3 (150-450); RBC Distribution Width CV 13.2 % (11.6-14.6); RBC Distribution Width SD 42.3 fl (35.1-43.9); Red Blood Count 4.45 M/mm3 (4.2-5.4); White Blood Count 9.5 K/mm3 (4.4-11.0)
[2021-10-21 18:17] LABS: Vitamin D,25 Hydroxy 28.1 ng/mL
[2021-10-21 18:22] LABS: ALB/GLOB Ratio 0.9 RATIO (0.9-2.4); AST(SGOT) 26 U/L (15-37); Alanine Aminotransfer ALT/SGPT 44 U/L (13-56); Albumin, Serum 3.4 g/dL (3.2-5.0); Alkaline Phosphatase 88 U/L (45-117); Anion Gap 6 (5-15); BUN 8 mg/dL (7-18); BUN/Creat Ratio 8.6 RATIO (10-20); Calcium,Total 8.7 mg/dL (8.5-10.1); Chloride 109 mmol/L (98-107); Creatinine, Serum 0.93 mg/dL (0.55-1.02); EST Glomerular Filtration Rate 71 mL/min (>60); Est Glom Filt Rate - Afr Amer 86 mL/min (>60); Globulin 3.6 g/dL (2.2-4.2); Glucose 114 mg/dL (74-106); Potassium 3.4 mmol/L (3.5-5.1); Sodium Level 140 mmol/L (136-145); T4 Free Direct 0.77 ng/dL (0.76-1.46); Thyroid Stim Hormone (TSH) 0.92 uIU/mL (0.358-3.74)
[2021-10-24 00:07] LABS: Thyroid Stim Immunoglob <0.10 IU/L (0.00-0.55)
[2021-10-24 09:44] LABS: Anti-Thyroglobulin AB < 1.0 IU/mL (0.0-0.9); Thyroglobulin, Serum Qt. 12.3 ng/mL (1.5-38.5); Thyroid Peroxidase AB < 8 IU/mL (0-34)
== END 2021-10-21 23:59 | disposition home or self-care (01) ==
LOC: MFPLAB 16:24
PROVIDERS: PCP Family Medicine; Referring Provider Family Medicine; Visit Provider Family Medicine
DX: E01.0 Iodine-deficiency related diffuse (endemic) goiter (principal); E55.9 Vitamin D deficiency, unspecified
CPT/HCPCS: 36415; 80053; 82306; 83036; 84432; 84439; 84443; 84445; 85025; 86376; 86800

== ENCOUNTER → 2021-12-18 | Outpatient (CLI) | payer OTHER, SELFPAY ==
[2021-12-18 12:40] LABS: AST(SGOT) 22 U/L (15-37); Alanine Aminotransfer ALT/SGPT 39 U/L (13-56); Albumin, Serum 3.6 g/dL (3.2-5.0); Alkaline Phosphatase 92 U/L (45-117); Anion Gap 10 (5-15); BUN 8 mg/dL (7-18); BUN/Creat Ratio 9.5 RATIO (10-20); Calcium,Total 9.1 mg/dL (8.5-10.1); Chloride 107 mmol/L (98-107); Creatinine, Serum 0.84 mg/dL (0.55-1.02); EST Glomerular Filtration Rate 80 mL/min (>60); Est Glom Filt Rate - Afr Amer 97 mL/min (>60); Globulin 3.6 g/dL (2.2-4.2); Glucose 96 mg/dL (74-106); Magnesium 2.3 mg/dL (1.6-2.6); Potassium 3.8 mmol/L (3.5-5.1); Protein, Total 7.2 g/dL (6.4-8.2); Sodium Level 140 mmol/L (136-145)
== END | disposition home or self-care (01) ==
LOC: MFPLAB 10:31
PROVIDERS: PCP Family Medicine; Referring Provider Family Medicine; Visit Provider Family Medicine
DX: R03.0 Elevated blood-pressure reading, without diagnosis of hypertension (principal)
CPT/HCPCS: 36415; 80053; 83735

== ENCOUNTER → 2022-02-24 | Outpatient (CLI) | payer OTHER, SELFPAY ==
--- NOTE | 2022-02-24 16:13 | RAD_ITS ---
STUDY: X-RAY CHEST REASON FOR EXAM: Female, 41 years old. CHEST PAIN SHORTNESS OF BREATH TECHNIQUE: XR Chest 2 Views COMPARISON: 10/07/2021 FINDINGS: There is no demonstrated pleural abnormality. Metallic leads in the spinal canal may suggest spinal stimulator leads. Normal size heart. Normal mediastinum and joseline. Normal visualized pulmonary arteries. Normal visualized aortic arch and descending thoracic aorta. Normal visualized thoracic spine. Normal visualized ribs, clavicles, and shoulders. There is no demonstrated abnormality of the visualized soft tissue structures of the upper abdomen. RAD/Chest PA and Lateral IMPRESSION: There are no acute findings. Electronically Signed: Frank Rivera MD at 20:07 EDT ,
[2022-02-24 18:00] LABS: Absolute Lymphocyte Count 2.08 X10^3/uL (0.83-4.51); Absolute Neutrophil Count 4.3 X10^3/uL (2.0-7.7); Basophil# 0.09 X10^3/uL; Basophil% 1.2 % (0-1); Eosinophil# 0.27 X10^3/uL; Eosinophils% 3.7 % (0-5); Hematocrit 40.5 % (37-47); Hemoglobin 13.8 g/dL (12.0-15.0); Lymphocyte # 2.08 X10^3/ul (0.83-4.51); Lymphocyte % 28.6 % (19-41); Mean Corp Hgb Conc 34.1 g/dL (32-36); Mean Corpuscular Hgb 29.4 pg (27.0-32.0); Mean Corpuscular Volume 86.2 fL (81-99); Mean Platelet Vol. 9.5 fl (6.2-12.0); Monocyte# 0.56 X10^3/uL; Monocyte% 7.7 % (0-10); NRBC Flagged by Analyzer 0 % (0-5); Neutrophil # 4.26 X10^3/uL (2.7-7.7); Neutrophil % 58.5 % (47-70); Platelet Count 416 K/mm3 (150-450); RBC Distribution Width CV 13.4 % (11.6-14.6); RBC Distribution Width SD 41.7 fl (35.1-43.9); White Blood Count 7.3 K/mm3 (4.4-11.0)
[2022-02-24 18:02] LABS: Vitamin B12 395 pg/mL (211-911); Vitamin D,25 Hydroxy 41.1 ng/mL
[2022-02-24 18:04] LABS: Hemoglobin A1c 5.2 % (3.8-5.6)
[2022-02-24 18:07] LABS: ALB/GLOB Ratio 1.1 RATIO (0.9-2.4); AST(SGOT) 40 U/L (15-37); Alanine Aminotransfer ALT/SGPT 76 U/L (13-56); Albumin, Serum 3.9 g/dL (3.2-5.0); Alkaline Phosphatase 96 U/L (45-117); Anion Gap 9 (5-15); BUN 9 mg/dL (7-18); BUN/Creat Ratio 10.9 RATIO (10-20); Calcium,Total 9.3 mg/dL (8.5-10.1); Chloride 101 mmol/L (98-107); Creatinine, Serum 0.83 mg/dL (0.55-1.02); EST Glomerular Filtration Rate 81 mL/min (>60); Est Glom Filt Rate - Afr Amer 98 mL/min (>60); Globulin 3.7 g/dL (2.2-4.2); Glucose 86 mg/dL (74-106); Potassium 3.1 mmol/L (3.5-5.1); Protein, Total 7.6 g/dL (6.4-8.2); Sodium Level 138 mmol/L (136-145); T4 Free Direct 0.82 ng/dL (0.76-1.46); Thyroid Stim Hormone (TSH) 2.11 uIU/mL (0.358-3.74)
[2022-02-25 11:36] LABS: Hepatitis B Surface Antibody Non-Reactive; Hepatitis B Surface Antigen Non-Reactive (Nonreactive); Hepatitis C Antibody Non-Reactive (Nonreactive)
[2022-02-26 07:35] LABS: Hepatitis A AB, Total Negative (Negative)
== END | disposition home or self-care (01) ==
LOC: MTRAD 16:11
PROVIDERS: PCP Family Medicine; Referring Provider Family Medicine; Visit Provider Family Medicine
DX: R06.02 Shortness of breath (principal); R94.5 Abnormal results of liver function studies; R53.83 Other fatigue; E55.9 Vitamin D deficiency, unspecified; R73.09 Other abnormal glucose; R68.89 Other general symptoms and signs
CPT/HCPCS: 36415; 71046; 80053; 82306; 82607; 83036; 84439; 84443; 85025; 86706; 86708; 86803; 87340

== ENCOUNTER 2022-02-27 15:30 | Outpatient (RCR) | payer OTHER, SELFPAY ==
--- NOTE | 2022-01-23 12:17 | HP.PTEVAL ---
Patient's Visit Information RADHA FERGUSON is a 41 year old F referred to Physical Therapy by Dr. Garland Robb DO with a diagnosis of C3, C4 Cervical Disc Replacement 01/07/22. Date of Evaluation: 01/23/22 Physical Therapist: Francisca Mac PT, Cert MDT - Visit Plan Frequency: 2-3x /Week Duration: 4-6 Weeks Plan: POSTURE CORRECTION/STRENGTHENING, INSTRUCTION IN APPROPRIATE BODY MECHANICS AND ACTIVITY MODIFICATIONS. BELLA UE ROM, STRETCHING AND STRENGTHENING. HEP INSTRUCTION. HEP GIVEN 01/23/22: SUBMAX CERVICAL ISO'S X 3, 3 SEC EA, 3 TIMES A DAY AND LEFT UE WALL SLIDES INTO FLEXION. CONTINUE TO WEAN OUT OF NECK COLLAR TOLERATED. - Subjective Diagnosis: s/p C3, C4 Cervical Disc Replacement 01/07/22. 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 Disability: NO. Present symptoms: MILD NECK PAIN. MID BACK PAIN. LEFT SHLD PAIN. PATIENT DENIES BELLA UE NUMBNESS AND TINGLING. Present since: DECEMBER 2020. Pain Scale: Worst - 3/10 Least - 1/10. Currently: 08/04. Commenced as a result of: NO APPARENT REASON. Symptoms at onset: LEFT SHLD PAIN. Worse: STANDING TOO LONG, SITTING TOO LONG, LYING DOWN TOO LONG. PUTTING SHIRT ON, WASHING HAIR. Better: TYLONOL AND ICE. Disturbed sleep: YES. Previous history/Previous treatment: UNREMARKABLE. Dizziness: NO. Tinnitis: NO. Nausea: NO. Shortness of Breath: NO. Difficulty Swollowing: INTERMITTENT - IMPROVING. Gait: NORMAL. Accidents: NO. Unexplained weight loss: NO. Imaging: X-RAYS YESTERDAY - REPORTS SHE WAS TOLD EVERYTHING IS IT SHOULD BE. PMH/Recent major surgery: L5S1 DISCECTOMY 2007 AND 2011. SPINAL CORD STIMULATOR 2012. 2019 FELL RESULTING IN R FOOT SX JUL 2020. OTHER: PATIENT REPORTS SHE WAS INSTRUCTED TO WEAN OUT OF NECK COLLAR TOLERATED. SHE REPORTS SHE WAS ABLE TO SLEEP WITHOUT IT LAST NIGHT. PATIENT REPORTS SHE WAS RELEASED TO BE ABLE TO DRIVE YESTERDAY BUT SHE HASN'T TRIED YET. REPORTS HER LEFT SHLD PAIN ISN'T EXCRUTIATING NOW COMPARED TO BEFORE SURGERY. - Objective Sitting Posture/Standing Posture: POOR. FH. RSH'S. NO TORTICOLLIS. Active Correction of posture: NE. Other Observations: THIS PATIENT AMBULATES INDEP'LY INTO PT WITHOUT ANY GROSS DEVIATIONS NOTED. Sensory deficit: BELLA UE LIGHT TOUCH SENSATION IS GROSSLY INTACT AND SYMMETRICAL. ROM deficit: RIGHT UE AROM WFL INCLUDING FOREARM WRIST AND HAND DESPITE TENDERNESS AT WRIST. LEFT SHLD FLEX IN SITTING WITH ELBOW STRAIGHT 70 DEG, FLEX WITH ELBOW BENT 140 DEG, ABD 60 DEG. SUPINE LEFT SHLD IR/ER WITH 45 SHLD ABD FULL/70 DEG. FULL LEFT ELBOW, FOREARM, WRIST AND HAND AROM. PATIENT C/O L SHLD PAIN AT THE END OF THE AVAILABLE ROM ALL PLANES WITH L SHLD TESTING. Motor deficit: RIGHT UE: FLEX 4-/5, EXT 4-/5, ABD 4-/5, IR 4/5, ER 4/5 ELBOW 4/5, WRIST 4/5 BUT TENDER AT R ULNAR DORSAL WRIST, HOSPITALITY RECRUITER 30 LBS. PATIENT DENIES INCREASED PAIN WITH ALL RIGHT UE MMT'ING EXCEPT WITH PALPATION OF R ULNAR DORSAL WRIST REGION WHICH SHE RELATES TO THE IV. LEFT UE: SHLD FLEX 2+/5, ABD 2/5, IR 3+/5, ER 3-/5, ELBOW 4/5, WRIST 4/5 AND LEFT HOSPITALITY RECRUITER 18 LBS. Reflexes: BELLA UE DTR'S 1/2. Dural Signs: POSITIVE BELLA UE'S. Cervical Mvmt Loss: Flex: SIM. Pro: MOD. Ext: SIM. Ret: SIM. RSB: SIM. LSB: SIM. R Rot: SIM. L Rot: SIM. CERVICAL ROM IS VERY RESTRICTED ALL PLANES AND ATTEMPTS TO MOVE NECK RESULTS INT C/O INCREASED NECK AND MID BACK PAIN. PATIENT DENIES INCREASED L SHLD AND SHLD BLADE PAIN WITH CERVICAL ROM TESTING. Postural strength: POOR. Palpation: INCISION LOOKS GOOD WITHOUT ANY SIGNS OF INFECTION. TREATMENT: THER ACT - HEP INITIATED WITH SUB MAX CERVICAL ISO'S ALL PLANES X 3, 3 SEC EA, 3 TIMES A DAY TOLERATED. ATTEMPTED TABLE WALK AWAYS FOR GENTLE L SHLD PASSIVE FLEXION BUT PATIENT UNABLE TO TOLERATE DUE TO NECK PAIN. INSTRUCTED PATIENT IN L UE WALL SLIDES INSTEAD FOR LEFT SHLD FLEXION AND SHE DID MUCH BETTER WITH THIS. INSTRUCTED TO KEEP EX AND ACTIVITY INTESITY AND ROM PAINFREE POSSIBLE. - Balance/Special Test Scores Oswestry Neck Score: 30 - Goals Goal 1:: DECREASE C/O NECK AND L UE PAIN Goal Time Frame: 4-6 Weeks Goal 2:: IMPROVE PERSONAL CARE, LIFTING, READING, SLEEP, WORK, DRIVING AND RECREATIONAL FUNCTION Goal Time Frame: 4-6 Weeks Goal 3:: INSTRUCT IN PROPHYLAXIS Goal Time Frame: 4-6 Weeks - Anticipated Interventions Patient/Client Instruction: Educate patient on: Condition, Plan of Care, Risk Factors For the Purpose of:: To improve self management Therapeutic Exercise to Include: Strength training, Body mechanics, Postural training, Flexibilty training, Neuromotor development, Scapular Strength/Stabilization For the Purpose of:: To decrease pain, To increase ROM, To improve muscle performance and motor function, To increase tolerance to activity/condition/position, To improve ability of physical actions for home/community/work/leisure Thank you for the opportunity to evaluate your patient. For Medicare and Medicare HMO plans, please review the plan of care and approve it. It will need to be FAXED BACK to us at [phone] for Medicare purposes. For Medicare only, by signing this I certify the plan of care. Please let me know if there are questions or concerns regarding this plan of care. Physician Signature: Date:
--- NOTE | 2022-03-23 13:45 | HP.PTDCNRP_ITS ---
RADHA FERGUSON was seen in my office for initial evaluation on 01/23/22. The following Plan of Care was established for this patient: Initial Frequency: 2-3x /Week Initial Duration: 4-6 Weeks Patient/Client Instruction: Educate patient on: Condition, Plan of Care, Risk Factors For the Purpose of:: To improve self management Therapeutic Exercise to Include: Strength training, Body mechanics, Postural training, Flexibilty training, Neuromotor development, Scapular Strength/Stabilization For the Purpose of:: To decrease pain, To increase ROM, To improve muscle performance and motor function, To increase tolerance to activity /condition/position, To improve ability of physical actions for home/community/work/leisure This patient was last seen in our office . Pertinent comments regarding their Physical therapy will appear below: This patient has not returned to Physical Therapy and is appropriate to return to MD for further follow-up as needed. At this point I will be discontinuing this patient from physical therapy. I would be happy to see this patient again in the future if found appropriate by the physician. Thank you! Francisca Mac, PT, Cert MDT Balance/Gait/Functional tests - Balance/Special Test Scores Oswestry Neck Score: 13
== END 2022-02-27 19:00 | disposition home or self-care (01) ==
LOC: PT 15:30
PROVIDERS: PCP Family Medicine; Referring Provider Orthopaedic Surgery; Visit Provider Orthopaedic Surgery
DX: Z98.1 Arthrodesis status (principal); Z47.89 Encounter for other orthopedic aftercare
CPT/HCPCS: 97110; 97112; 97162; 97164

== ENCOUNTER → 2022-03-03 | Outpatient (CLI) | payer OTHER, SELFPAY ==
[2022-03-03 18:28] LABS: AST(SGOT) 31 U/L (15-37); Alanine Aminotransfer ALT/SGPT 72 U/L (13-56); Albumin, Serum 3.7 g/dL (3.2-5.0); Alkaline Phosphatase 99 U/L (45-117); Anion Gap 5 (5-15); BUN 9 mg/dL (7-18); BUN/Creat Ratio 13.5 RATIO (10-20); Calcium,Total 8.7 mg/dL (8.5-10.1); Chloride 105 mmol/L (98-107); Creatinine, Serum 0.67 mg/dL (0.55-1.02); EST Glomerular Filtration Rate 104 mL/min (>60); Est Glom Filt Rate - Afr Amer 125 mL/min (>60); Globulin 3.8 g/dL (2.2-4.2); Glucose 96 mg/dL (74-106); Potassium 3.4 mmol/L (3.5-5.1); Protein, Total 7.5 g/dL (6.4-8.2); Sodium Level 137 mmol/L (136-145)
== END | disposition home or self-care (01) ==
LOC: MFPLAB 16:10
PROVIDERS: PCP Family Medicine; Referring Provider Family Medicine; Visit Provider Family Medicine
DX: R79.89 Other specified abnormal findings of blood chemistry (principal)
CPT/HCPCS: 36415; 80053

== ENCOUNTER → 2022-03-17 | Outpatient (CLI) | payer OTHER, SELFPAY ==
--- NOTE | 2022-03-17 14:55 | ECHOD_ITS ---
[id number] ECHO^ECHOD^Echo Complete [id number] Reason For Study: SOB Procedure This was a 2D Doppler, Color Flow transthoracic echocardiogram. The exam was of adequate technical quality. Exam performed in department. Left Ventricle Normal LV size. Left ventricular systolic function is normal. The estimated ejection fraction is 60 %. No evidence for diastolic dysfunction. No regional wall motion abnormalities noted. Right Ventricle Normal RV size. Normal systolic function. Atria Normal left atrium. Normal right atrium. No doppler evidence for ASD. Bubble contrast study negative for right to left interatrial shunt. Mitral Valve There is no mitral annular calcification. Normal mitral valve. Trivial mitral valve insufficiency. Tricuspid Valve Normal tricuspid valve. Trivial tricuspid valve insufficiency. Right ventricular systolic pressure estimated to be 29 mmHg. Aortic Valve Trisinus/trileaflet aortic valve. Normal aortic valve. Pulmonic Valve The pulmonic valve is not well visualized. Trivial pulmonic valve insufficiency. Great Vessels Normal sized aortic root. Pericardium/Pleural No pericardial effusion. Medication 22 gauge I.V. with prn adaptor inserted into left arm. Performed a rapid injection of agitated mix of 9 cc saline and 1cc air to assess for atrial septal defect. MMode/2D Measurements & Calculations RVDd: 3.8 cm LVIDd: 5.1 cm FS: 42.9 % IVSd: 0.84 cm LVIDs: 2.9 cm LVPWd: 0.80 cm ESV(MOD-sp4): 34.3 ml Ao root diam: 3.1 cm LAV(MOD-bp): 29.1 ml LAV(MOD-bp) Indexed: 14.1 ml/m2 LAV(MOD-sp2): 29.1 ml LAV(MOD-sp4): 27.5 ml SV(MOD-sp4): 54.2 ml SV(sp4-el): 54.1 ml LVAd ap4: 29.4 cm2 LVLd ap4: 8.4 cm EDV(MOD-sp4): 88.6 ml EDV(sp4-el): 87.4 ml LVAs ap4: 16.0 cm2 LVLs ap4: 6.5 cm ESV(sp4-el): 33.2 ml EF(MOD-sp4): 61.2 % EF(sp4-el): 62.0 % LA A4 area: 12.5 cm2 LA dimension(2D): 3.5 cm RA A4 area: 11.1 cm2 Time Measurements MV dec time: 0.18 sec Doppler Measurements & Calculations MV E max slade: 70.3 cm/sec Lat Peak E' Slade: 16.6 cm/sec MV dec slope: 383.1 cm/sec2 MV A max slade: 67.3 cm/sec MV E/A: 1.0 Med Peak E' Slade: 10.3 cm/sec Ao V2 max: 106.4 cm/sec LV V1 max P.0 mmHg PA V2 max: 85.3 cm/sec Ao max P.5 mmHg LV V1 mean P.6 mmHg LV V1 max: 112.0 cm/sec LV V1 mean: 74.7 cm/sec LV V1 VTI: 23.3 cm TR max slade: 255.9 cm/sec E/E' lat: 4.2 E/E' med: 6.8 TR max P.2 mmHg ECHO/Echo Complete Interpretation Summary Left ventricular systolic function is normal. The estimated ejection fraction is 60 %. Trivial mitral valve insufficiency. Trivial tricuspid valve insufficiency. Trivial pulmonic valve insufficiency. Right ventricular systolic pressure estimated to be 29 mmHg. No evidence for diastolic dysfunction. Ordering Physician: Jono Ashley Referring Physician: Jono Ashley Performed By: Leonora Fallon RDCS
== END | disposition home or self-care (01) ==
LOC: CVS 14:48
PROVIDERS: PCP Family Medicine; Visit Provider Family Medicine
DX: R06.02 Shortness of breath (principal)
CPT/HCPCS: 93306; A4216

== ENCOUNTER → 2023-06-08 | Outpatient (CLI) | payer OTHER, SELFPAY ==
[2023-06-08 16:18] LABS: Mucous, Urine 0 SEEN /hpf (<or=2+); Red Blood Cells-Urine 0 SEEN /hpf (0-5)
[2023-06-08 17:40] LABS: Absolute Lymphocyte Count 2.05 X10^3/uL (0.83-4.51); Absolute Neutrophil Count 6.3 X10^3/uL (2.0-7.7); Basophil# 0.09 X10^3/uL; Eosinophil# 0.24 X10^3/uL; Eosinophils% 2.6 % (0-5); Hematocrit 41.6 % (37-47); Hemoglobin 13.8 g/dL (12.0-15.0); Lymphocyte # 2.05 X10^3/ul (0.83-4.51); Lymphocyte % 22.2 % (19-41); Mean Corp Hgb Conc 33.2 g/dL (32-36); Mean Corpuscular Hgb 29.1 pg (27.0-32.0); Mean Corpuscular Volume 87.6 fL (81-99); Mean Platelet Vol. 10.2 fl (6.2-12.0); Monocyte# 0.54 X10^3/uL; Monocyte% 5.8 % (0-10); NRBC Flagged by Analyzer 0 % (0-5); Neutrophil # 6.28 X10^3/uL (2.7-7.7); POSITIVE COUNT YES; Platelet Count 412 K/mm3 (150-450); RBC Distribution Width CV 13.4 % (11.6-14.6); RBC Distribution Width SD 43.1 fl (35.1-43.9); Red Blood Count 4.75 M/mm3 (4.2-5.4); White Blood Count 9.2 K/mm3 (4.4-11.0)
[2023-06-08 17:40] LABS: Color, Urine Yellow (Yellow); Glucose, Dipstick Normal (Normal); Ketone-Dipstick 5 mg/dl (Negative); Leukocyte Esterase-Dipstick 25 /ul (Negative); Nitrite-Dipstick Negative (Negative); Occult Blood-Urine 25 /ul (Negative); Protein-Dipstick 15 mg/dl (Negative); Urine Bilirubin Dipstick Negative (Negative); Urine Clarity Clear (Clear); Urine Urobilinogen Normal (Normal)
[2023-06-08 17:51] LABS: Bacteria 1+ /hpf (None Seen); Calcium Oxalate Crystals Ur RARE /hpf (<or=2+); Squamous Epithelial Cells - UA 0-5 SEEN /hpf (5-10)
[2023-06-08 17:52] LABS: White Blood Cells 0-5 SEEN /hpf (0-5)
[2023-06-08 18:03] LABS: Vitamin D,25 Hydroxy 34.1 ng/mL
[2023-06-08 18:07] LABS: Differential Indicated SCAN CRITERIA MET
[2023-06-08 18:10] LABS: ALB/GLOB Ratio 0.9 RATIO (0.9-2.4); AST(SGOT) 21 U/L (15-37); Alanine Aminotransfer ALT/SGPT 41 U/L (13-56); Albumin, Serum 3.6 g/dL (3.2-5.0); Alkaline Phosphatase 110 U/L (45-117); Anion Gap 8 (5-15); BUN 11 mg/dL (7-18); BUN/Creat Ratio 14.9 RATIO (10-20); Calcium,Total 8.5 mg/dL (8.5-10.1); Chloride 105 mmol/L (98-107); Cholesterol 150 mg/dL (200); Creatinine, Serum 0.74 mg/dL (0.55-1.02); EST Glomerular Filtration Rate 92 mL/min (>60); Est Glom Filt Rate - Afr Amer 111 mL/min (>60); Globulin 3.9 g/dL (2.2-4.2); Glucose 82 mg/dL (74-106); High Density Lipoprotein 68 mg/dL; Potassium 3.3 mmol/L (3.5-5.1); Protein, Total 7.5 g/dL (6.4-8.2); Sodium Level 137 mmol/L (136-145); T4 Free Direct 0.79 ng/dL (0.76-1.46); Thyroid Stim Hormone (TSH) 2.28 uIU/mL (0.358-3.74); Triglycerides 68 mg/dL; Very Low Density Lipoprotein 14 mg/dL (5-40)
[2023-06-11 09:08] LABS: Anti-Thyroglobulin AB < 1.0 IU/mL (0.0-0.9); Thyroglobulin, Serum Qt. 5.3 ng/mL (1.5-38.5); Thyroid Peroxidase AB 10 IU/mL (0-34)
== END | disposition home or self-care (01) ==
LOC: MFPLAB 16:12
PROVIDERS: PCP Family Medicine; Visit Provider Family Medicine
DX: I10 Essential (primary) hypertension (principal); E01.0 Iodine-deficiency related diffuse (endemic) goiter; E55.9 Vitamin D deficiency, unspecified
CPT/HCPCS: 36415; 80053; 80061; 81001; 82306; 84432; 84439; 84443; 85025; 86376; 86800

== ENCOUNTER → 2024-01-19 | Outpatient (CLI) | payer OTHER, SELFPAY ==
[2024-01-19 17:43] LABS: Absolute Lymphocyte Count 1.71 X10^3/uL (0.83-4.51); Absolute Neutrophil Count 5.8 X10^3/uL (2.0-7.7); Basophil# 0.07 X10^3/uL; Basophil% 0.8 % (0-1); Eosinophil# 0.23 X10^3/uL; Eosinophils% 2.7 % (0-5); Hematocrit 40.2 % (37-47); Hemoglobin 13.3 g/dL (12.0-15.0); Lymphocyte # 1.71 X10^3/ul (0.83-4.51); Lymphocyte % 20.3 % (19-41); Mean Corp Hgb Conc 33.1 g/dL (32-36); Mean Corpuscular Volume 87.6 fL (81-99); Mean Platelet Vol. 9.6 fl (6.2-12.0); Monocyte% 7.1 % (0-10); NRBC Flagged by Analyzer 0 % (0-5); Neutrophil % 68.7 % (47-70); Platelet Count 376 K/mm3 (150-450); RBC Distribution Width CV 13.6 % (11.6-14.6); RBC Distribution Width SD 43.6 fl (35.1-43.9); Red Blood Count 4.59 M/mm3 (4.2-5.4); White Blood Count 8.4 K/mm3 (4.4-11.0)
[2024-01-19 18:07] LABS: Vitamin D,25 Hydroxy 27.4 ng/mL
[2024-01-19 18:24] LABS: AST(SGOT) 12 U/L (15-37); Alanine Aminotransfer ALT/SGPT 33 U/L (13-56); Albumin, Serum 3.7 g/dL (3.2-5.0); Alkaline Phosphatase 92 U/L (45-117); Anion Gap 6 (5-15); BUN 15 mg/dL (7-18); BUN/Creat Ratio 17.5 RATIO (10-20); Calcium,Total 9.4 mg/dL (8.5-10.1); Chloride 108 mmol/L (98-107); Cholesterol 126 mg/dL (200); Creatinine, Serum 0.86 mg/dL (0.55-1.02); EST Glomerular Filtration Rate 77 mL/min (>60); Est Glom Filt Rate - Afr Amer 93 mL/min (>60); Globulin 3.6 g/dL (2.2-4.2); Glucose 94 mg/dL (74-106); High Density Lipoprotein 54 mg/dL; Potassium 3.4 mmol/L (3.5-5.1); Protein, Total 7.3 g/dL (6.4-8.2); Sodium Level 137 mmol/L (136-145); Thyroid Stim Hormone (TSH) 2.79 uIU/mL (0.358-3.74); Triglycerides 58 mg/dL; Very Low Density Lipoprotein 12 mg/dL (5-40)
== END | disposition home or self-care (01) ==
LOC: MFPLAB 16:46
PROVIDERS: PCP Family Medicine; Visit Provider Family Medicine
DX: E55.9 Vitamin D deficiency, unspecified (principal); I10 Essential (primary) hypertension
CPT/HCPCS: 36415; 80053; 80061; 82306; 83735; 84443; 85025

== ENCOUNTER → 2024-02-11 | Outpatient (CLI) | payer OTHER, SELFPAY ==
--- NOTE | 2024-02-11 11:15 | MRI_ITS ---
STUDY: MRI LUMBAR SPINE WITH AND WITHOUT CONTRAST REASON FOR EXAM: Female, 43 years old. DEGENERATIVE DISC DISEASE TECHNIQUE: Standardized fat and water weighted pulse sequences were obtained in the sagittal and axial planes. IV 20 ml clariscan was administered for the contrast portion of the examination. COMPARISON: 02/10/2012 FINDINGS: T12-L1: Normal endplates. Normal disc height, hydration and morphology. Normal bilateral facet joints. Normal central canal and bilateral lateral recesses. Normal bilateral intervertebral neural foramina. Normal lumbar lordosis. There is no substantial scoliosis. Normal conus medullaris that terminates at the T12/L1. L1-2: Normal endplates. Normal disc height, hydration and morphology. Normal bilateral facet joints. Normal central canal and bilateral lateral recesses. Normal bilateral intervertebral neural foramina. L2-3: Normal endplates. Normal disc height, hydration and morphology. Normal bilateral facet joints. Normal central canal and bilateral lateral recesses. Normal bilateral intervertebral neural foramina. L3-4: Normal endplates. Normal disc height, hydration and morphology. Normal bilateral facet joints. Normal central canal and bilateral lateral recesses. Normal bilateral intervertebral neural foramina. L4-5: Normal endplates. Normal disc height, hydration and morphology. Normal bilateral facet joints. Normal central canal and bilateral lateral recesses. Normal bilateral intervertebral neural foramina. L5-S1: Mild bilateral facet hypertrophy and ligament flavum hypertrophy. No change in the 2 mm retrolisthesis of L5 on S1 with a mild broad disc protrusion which produces mild spinal stenosis and mild bilateral neural foraminal stenosis. Normal visualized sacral ala. Normal visualized paraspinous soft tissue structures. There is no demonstrated abnormal enhancement. MRI/Spine Lumbar W/WO Contrast IMPRESSION: No change from 02/10/2012. Electronically Signed: Donn Rothman MD at 18:46 EDT ,
== END | disposition home or self-care (01) ==
LOC: MRI 11:09
PROVIDERS: PCP Family Medicine; Referring Provider Nurse Practitioner; Visit Provider Nurse Practitioner
DX: M51.36 Other intervertebral disc degeneration, lumbar region (principal)
CPT/HCPCS: 72158; A9575

== ENCOUNTER → 2024-03-06 | Outpatient (CLI) | payer OTHER, SELFPAY ==
--- NOTE | 2024-03-06 14:45 | MRI_ITS ---
STUDY: MRI CERVICAL SPINE WITHOUT CONTRAST REASON FOR EXAM: Female, 43 years old. S/P CERVICAL DISC REPLACEMENT TECHNIQUE: Standardized fat and water weighted pulse sequences were obtained in the sagittal and axial planes. COMPARISON: CT 02/04/2021 FINDINGS: Normal foramen magnum and brainstem-cervical cord junction. Normal craniovertebral junction. Normal anterior atlantoaxial articulation. Normal odontoid process. Normal cervical lordosis. Normal vertebral bodies and posterior osseous elements. C2-3: Normal endplates. Normal disc height, signal and morphology. Normal central canal and intervertebral neural foramina. C3-4: Suspected disc implant with anatomic alignment. C4-5: Mild broad disc osteophyte complex produce mild spinal stenosis. No neural foraminal stenosis. C5-6: Mild broad disc osteophyte complex produces mild spinal stenosis. No neural foraminal stenosis. C6-7: 2 mm retrolisthesis of C6 on C7 with a mild broad disc osteophyte complex produces mild spinal stenosis and mild bilateral neural foraminal stenosis. Associated Modic type II endplate changes. C7-T1: Normal endplates. Normal disc height, signal and morphology. Normal central canal and intervertebral neural foramina. Normal cervical cord. Normal visualized soft tissue structures. MRI/Spine Cervical (Routine) IMPRESSION: Postsurgical changes and degenerative disc disease as described above. Electronically Signed: Donn Rothman MD at 14:02 EDT ,
== END | disposition home or self-care (01) ==
PROVIDERS: PCP Family Medicine; Referring Provider Orthopaedic Surgery; Visit Provider Orthopaedic Surgery
DX: Z98.890 Other specified postprocedural states (principal)
CPT/HCPCS: 72141

== ENCOUNTER → 2024-03-07 | Outpatient (CLI) | payer OTHER, SELFPAY ==
[2024-03-07 12:13] LABS: Absolute Lymphocyte Count 1.49 X10^3/uL (0.83-4.51); Absolute Neutrophil Count 4.7 X10^3/uL (2.0-7.7); Basophil# 0.07 X10^3/uL; Eosinophil# 0.14 X10^3/uL; Hematocrit 40.4 % (37-47); Hemoglobin 13.3 g/dL (12.0-15.0); Lymphocyte # 1.49 X10^3/ul (0.83-4.51); Lymphocyte % 21.3 % (19-41); Mean Corp Hgb Conc 32.9 g/dL (32-36); Mean Corpuscular Hgb 29.1 pg (27.0-32.0); Mean Corpuscular Volume 88.4 fL (81-99); Mean Platelet Vol. 9.8 fl (6.2-12.0); Monocyte# 0.53 X10^3/uL; Monocyte% 7.6 % (0-10); NRBC Flagged by Analyzer 0 % (0-5); Neutrophil # 4.74 X10^3/uL (2.7-7.7); Neutrophil % 67.8 % (47-70); Platelet Count 346 K/mm3 (150-450); RBC Distribution Width CV 13.4 % (11.6-14.6); RBC Distribution Width SD 43.4 fl (35.1-43.9); Red Blood Count 4.57 M/mm3 (4.2-5.4)
[2024-03-07 12:24] LABS: AST(SGOT) 13 U/L (15-37); Alanine Aminotransfer ALT/SGPT 25 U/L (13-56); Albumin, Serum 3.6 g/dL (3.2-5.0); Alkaline Phosphatase 88 U/L (45-117); Anion Gap 5 (5-15); BUN 12 mg/dL (7-18); BUN/Creat Ratio 15.5 RATIO (10-20); Calcium,Total 9.2 mg/dL (8.5-10.1); Chloride 104 mmol/L (98-107); Creatinine, Serum 0.77 mg/dL (0.55-1.02); EST Glomerular Filtration Rate 87 mL/min (>60); Est Glom Filt Rate - Afr Amer 105 mL/min (>60); Globulin 3.5 g/dL (2.2-4.2); Glucose 94 mg/dL (74-106); Potassium 3.7 mmol/L (3.5-5.1); Protein, Total 7.1 g/dL (6.4-8.2); Sodium Level 136 mmol/L (136-145)
== END | disposition home or self-care (01) ==
LOC: MFPLAB 10:34
PROVIDERS: PCP Family Medicine; Visit Provider Nurse Practitioner Family
DX: I10 Essential (primary) hypertension (principal)
CPT/HCPCS: 36415; 80053; 85025

== ENCOUNTER → 2024-08-31 | Outpatient (CLI) | payer OTHER, SELFPAY ==
[2024-08-31 15:32] LABS: Absolute Lymphocyte Count 1.78 X10^3/uL (0.83-4.51); Absolute Neutrophil Count 5.3 X10^3/uL (2.0-7.7); Basophil# 0.08 X10^3/uL; Eosinophil# 0.19 X10^3/uL; Eosinophils% 2.4 % (0-5); Hematocrit 38.8 % (37-47); Hemoglobin 12.5 g/dL (12.0-15.0); Lymphocyte # 1.78 X10^3/ul (0.83-4.51); Lymphocyte % 22.6 % (19-41); Mean Corp Hgb Conc 32.2 g/dL (32-36); Mean Corpuscular Hgb 29.2 pg (27.0-32.0); Mean Corpuscular Volume 90.7 fL (81-99); Mean Platelet Vol. 9.4 fl (6.2-12.0); Monocyte% 6.4 % (0-10); NRBC Flagged by Analyzer 0 % (0-5); Neutrophil # 5.28 X10^3/uL (2.7-7.7); Neutrophil % 67.1 % (47-70); Platelet Count 347 K/mm3 (150-450); RBC Distribution Width CV 13.4 % (11.6-14.6); Red Blood Count 4.28 M/mm3 (4.2-5.4); White Blood Count 7.9 K/mm3 (4.4-11.0)
[2024-08-31 15:39] LABS: Vitamin D,25 Hydroxy 15.9 ng/mL
[2024-08-31 16:15] LABS: ALB/GLOB Ratio 0.9 RATIO (0.9-2.4); AST(SGOT) 16 U/L (15-37); Alanine Aminotransfer ALT/SGPT 21 U/L (13-56); Albumin, Serum 3.3 g/dL (3.2-5.0); Alkaline Phosphatase 98 U/L (45-117); Anion Gap 6 (5-15); BUN 11 mg/dL (7-18); BUN/Creat Ratio 14.3 RATIO (10-20); Calcium,Total 8.8 mg/dL (8.5-10.1); Chloride 105 mmol/L (98-107); Cholesterol 132 mg/dL (200); Creatinine, Serum 0.77 mg/dL (0.55-1.02); EST Glomerular Filtration Rate 87 mL/min (>60); Est Glom Filt Rate - Afr Amer 106 mL/min (>60); Globulin 3.6 g/dL (2.2-4.2); Glucose 89 mg/dL (74-106); High Density Lipoprotein 81 mg/dL; Magnesium 2.2 mg/dL (1.6-2.6); Potassium 3.6 mmol/L (3.5-5.1); Protein, Total 6.9 g/dL (6.4-8.2); Sodium Level 138 mmol/L (136-145); Triglycerides 65 mg/dL; Very Low Density Lipoprotein 13 mg/dL (5-40)
== END | disposition home or self-care (01) ==
LOC: MFPLAB 11:36
PROVIDERS: PCP Family Medicine; Referring Provider Family Medicine; Visit Provider Family Medicine
DX: I10 Essential (primary) hypertension (principal); E55.9 Vitamin D deficiency, unspecified; E87.6 Hypokalemia
CPT/HCPCS: 36415; 80053; 80061; 82306; 83735; 84443; 85025